=== PATIENT | female | born 1985 ===

== ENCOUNTER 2024-06-30 20:58 | Emergency (ER) | payer BC, MEDICAID, SELFPAY ==
--- NOTE | ~2024-06-30 | XR_ITS ---
HISTORY: look for needle tip; infxn from injection COMPARISON: None TECHNIQUE: 2 views of the left humerus were performed FINDINGS: No acute or subacute fracture. Joint spaces are preserved and alignment is maintained. Soft tissues are unremarkable without radiopaque foreign body or significant calcification. Age-appropriate mineralization. IMPRESSION: No radiopaque foreign body, as detailed above. Reviewed, dictated and finalized at location A.
[2024-06-30 21:01] VITALS: BP 117/50; PULSE 98; RESP 15; TEMP 36.2; O2SAT 100
--- OUTSIDE RECORDS SUMMARY | 2024-06-30 21:01 | XMS_ITS | Continuity of Care Document ---
Author Organization [facility] Address [address] [place] [address] Phone Care Team Providers Care Brush Clearing Laborer Name Role Phone Unavailable Unavailable Unavailable Medications Medication Instructions Dosage Effective Dates (start - stop) Status Comments Vicodin 5 mg-500 mg Tab take 1 tablet by oral route every 4 - 6 hours as needed for pain - Active Vicodin 5 mg-500 mg Tab take 1 tablet by oral route every 4 - 6 hours as needed for pain - Active Vicodin 5 mg-500 mg Tab take 1 tablet by oral route every 4 - 6 hours as needed for pain - Active Vicodin 5 mg-500 mg Tab take 1 tablet by oral route every 4 - 6 hours as needed for pain - Active Vicodin 5 mg-500 mg Tab take 1 tablet by oral route every 4 - 6 hours as needed for pain - Active Vicodin 5 mg-500 mg Tab take 1 tablet by oral route every 4 - 6 hours as needed for pain - No Longer Active Procedures Procedure Date Extraction erupted tooth or exposed root Surgical extr erupted tooth Extraction erupted tooth or exposed root Resin composite, 1 surf posterior Dentures maxill part resin Denture Intermediate Visit Study Models Znpgaqh-Grejepx-Pfliwcy Impressions Extraction erupted tooth or exposed root Extraction erupted tooth or exposed root Extraction erupted tooth or exposed root Extraction erupted tooth or exposed root Extraction erupted tooth or exposed root Extraction erupted tooth or exposed root Extraction erupted tooth or exposed root Extraction erupted tooth or exposed root Amalgam two surfaces Limit oral eval problem focused 011 Comprehensve oral evaluation Dental bitewings four films Dental prophylaxis adult Topical fluor w/o prophy adult 11 Oral hygiene instruction Advance Directives Directive Yes / No Effective Date File Name No Information Encounters Encounter Description Practice Location Reason(s) For Visit Diagnoses Date Provider Providers Copied on Encounter [facility] , [address], [place], [place], [address], tel:[phone] [facility] Dental examination No Information [facility] , [address], [place], [place], [address], tel:[phone] [facility] [place] Dental examination Basia Crews. [address], [place], [place], [address], . tel:[phone] [facility] , [address], [place], [place], [address], tel:[phone] [facility] Dental examination No Information [facility] , [address], [place], [place], [address], tel:[phone] [facility] Dental examination No Information [facility] , [address], [place], [place], [address], tel:[phone] [facility] [place] Dental examination No Information [facility] [employer] , [address], [place], [place], [address], tel:[phone] [facility] [place] No Information No Information [facility] [employer] , [address], [place], [place], [address], tel:[phone] [facility] [place] No Information No Information [facility] [employer] , [address], [place], [place], [address], tel:[phone] [facility] No Information No Information [facility] [employer] , [address], [place], [place], [address], tel:[phone] [facility] No Information No Information [facility] , [address], [place], [place], [address], tel:[phone] [facility] No Information No Information [facility] , [address], [place], [place], [address], tel:[phone] [facility] [place] No Information No Information [facility] , [address], [place], [place], [address], [place] tel:[phone] [facility] No Information No Information Family History Family Member Type Diagnosis Age At Onset No Information Payers Payer name Insurance type Covered constitution party ID Authoriza tion(s) No Information Social History Type Description Quantity Date Captured Comments Sex Female Smoking Status No Information Chief Complaint And Reason For Visit No Information Reason For Referral Reason For Referral No Information History Of Present Illness Encounter Date Complaint History Of Prese nt Illness No Information Functional Status Date Functional Assessmen t No Information Instructions Date Instruction Additional Infor mation No Information Assessments Type Assessment Date No Information Patient Care Teams Name Effective Dates (start - stop) Status Members No Information
--- OUTSIDE RECORDS SUMMARY | 2024-06-30 21:01 | XMS_ITS | Referral Summary ---
Author Organization [facility] Address [address] [place] [address] Care Team Providers Care Pouring Crane Operator Name Role Phone Unknown, Notinfile Primary Care Provider Unavail able Allergies No known active allergies Medications docusate sodium (COLACE) 100 mg capsuleIndicati ons:constipatio n Take 1 capsule (100 mg total) by mouth daily 30 [address] (PROTONIX) 40 mg EC tabletIndicatio ns:GI Bleed Take 1 tablet (40 mg total) by mouth 2 (two) times a day 60 tablet 9 Active lidocaine (LIDODERM) 5 % Apply 1 patch topically daily for 15 days Remove after 12 hours (need 12 hour patch free period). 15 patch 2 Active Active Problems Problem Noted Date Diagnosed Date Internal and external prolapsed hemorrhoids 08/2018 Gastric ulcer 09/25/2018 Microcytic anemia 09/24/2018 Assessment & Plan (09/25/2018 2:36 PM CDT): Given how anemic she is (3.7) with how well she looks, likely relatively chronic in nature. Vaginal bleeding most common cause of THEODORA in young women, however her history pretty clearly delineates a GI origin of her bleeding. It would be unusual for hemorrhoids to cause such a profound anemia. She does note a hx of rectal prolapse though there is none noted on rectal exam. DDx UGI bleed (gastritis, ulcer; unlikely esophageal varices though she does note a hx of heavy EtOH use), vs LGI bleed -s/p transfusion 3U prbcs 3.7-->7.9-->7.1 -EGD and colonoscopy performed today -EGD results: Suspicious for Diggs's esophagus, non-bleeding pre-pyloric gastric ulcer with erosive gastritis. -Colonoscopy results: Hemorrhoids with prolapse with congested, erythematous, friable and ulcerated mucosa in the distal rectum. -Biopsies taken -ON BID PO PPI -will start iron and colace at discharge Rectal prolapse 09/24/2018 Assessment & Plan (09/25/2018 2:25 PM CDT): Pt reported hx of rectal prolapse recently, though none noted on exam. -Hemorrhoids with prolapse found on colonoscopy -f/u with colorectal outpatient Polysubstance abuse 09/24/2018 Assessment & Plan (09/25/2018 2:25 PM CDT): Prior heavy EtOH use (2 pints 3-4x/week), no hx of withdrawals. Last drink in April. Snorts methamphetamines, last used ~1 week ago. Currently sexually active, not using contraception. -given duration since last drink, will not empirically place on CIWA; no withdrawal symptoms History of gastrointestinal hemorrhage 9 Overview (09/24/2018): Added automatically from request for surgery [id number] Social History Tobacco Use Types Packs/Day Years Used Date Smoking Tobacco: Every Day Cigarettes Alcohol Use Standard Drinks/Week Comments Not Currently 0 (1 standard drink = 0.6 oz pure alcohol) Previously drank 2 pints 3-4 x/week. Abstinent since 04/2018. Personal Safety Answer Date Recorded Getting School Help Needed Not on file 04/27 Comments No Sex and Gender Information Value Date Recorded Sex Assigned at Not on file Legal Sex Female 12:50 PM CDT Gender Identity Not on file Sexual Orientation Not on file Last Filed Vital Signs Vital Sign Reading Time Taken Comments Blood Pressure 114/64 01/01/2022 11:10 PM SEWER HEAD Pulse 77 01/01/2022 11:10 PM [facility] Temperature 36.7 C (98 F) 01/01/2022 3:45 PM SE[facility] Respiratory Rate 18 01/01/2022 11:10 PM SE[facility] Oxygen Saturation 100% 01/01/2022 11:10 PM SEWER HEAD Inhaled Oxygen Concentration - - Weight 63.5 kg (140 lb) 01/01/2022 3:45 PM SEWER HEAD Height 157.5 cm (5' 2 ) 01/01/2022 3:45 PM SEWER HEAD Body Mass Index 25.61 01/01/2022 3:45 PM SEWER HEAD Plan of Treatment Not on file Procedures Procedure Name Priority Date/Time Associated Diagnosis Comments HEPATITIS PANEL, ACUTE Routine 09/24/2018 9:15 PM CDT from Last 3 Months or Most Recently Relevant to Health Maintenance Results * Hepatitis panel, acute (09/24/2018 9:15 PM CDT) Hep A IgM Nonreactive Nonreactive [facility] Comment: Interpretive Data If test is reported as GRAYZONE, new sample should be drawn in two weeks for testing. Current interpretive data was last revised on 2016. Hep B core IgM Nonreactive Nonreactive [facility] Comment: Interpretive Data If test is reported as GRAYZONE, new sample should be drawn for testing. Current interpretive data was last revised on 2016. Hep C Ab Nonreactive Nonreactive [facility] Comment: Interpretive Data Positive results should be confirmed by a molecular method. If positive, a second separately collected sample should be submitted for Hepatitis C Virus (HCV) RNA Detection and Quantitation by Real-Time Reverse Phd Internship-PCR (RT-PCR). Current interpretive data was last revised on 2016. HepBsAg Nonreactive Nonreactive [facility] Blood specimen (specimen) 09/24/2018 9:15 PM CDT 09/24/2018 9:56 PM CDT us Jimmy Garcia MD LAB MICROBIOLOGY - GENE [facility] ORDERABLES Edited Result - Final [facility] Department [place] [address] from Last 3 Months or Most Recently Relevant to Health Maintenance Insurance [employer] BETTER [facility] [employer] [place] Advance Directives For more information, please contact: [phone] * Full Code (Latest Code Status on File) Date Activated Date Inactivated Comments 09/23/2018 11:38 PM 09/25/2018 9:12 PM Care Teams Pouring Crane Operator Relationship Specialty Start Date End Date Unknown, Notinfile PCP - General 09/25/18
--- OUTSIDE RECORDS SUMMARY | 2024-06-30 21:01 | XMS_ITS ---
Author Organization [facility] Address [address] [place] [address] Care Team Providers Care Technical Fellow Name Role Phone Santino Zambrano Primary Care Provider REASON FOR VISIT 2 Week F/U Social History Sex Assigned At : Social History Observation Description Sex Assigned At Female Encounters Encounter Location Date Provider Diagnosis [address] [place] [address] 06/11/2023 Santino Zambrano Plan Of Treatment No Information Progress Notes * Iban OLIVOOB: 984 (39 yo F)Acc No.[id number]:06/11/2023 UNLOCKED PROGRESS NOTE Progress Notes Patient: Nereida JIM Provider: Brooks Zambrano :1985 A ge:38 Y S ex:Female Date:06/11/2023 Address:[facility] Subjective: * Chief Complaints: * 1 . 2 Week F/U. * Medical History: Objective: * Vitals: Assessment: Plan: * Treatment: * * Electronic signature of Trevon Zambrano , [id number] on 06/30/2024 at 09:00 PM CDT Sign off status: Pending * Provider: Brooks Zambrano Date: 06/11/2023 Generated for Joselin ng/Falinag/eTransmitting on: 06/30/2024 09:00 PM CDT
--- OUTSIDE RECORDS SUMMARY | 2024-06-30 21:01 | XMS_ITS | Encounter Summary ---
Author Organization [facility] Address [address] [place] [address] Care Team Providers Care Director Correctional Agency Name Role Phone Unknown, Notinfile Primary Care Provider Unavail able Unknown, Notinfile Primary Care Provider Unavail able Encounter Details Date Type Department Care Team (Late st Contact Info) Description 09/23/[address] [address] Harriet Serra RN Social History Tobacco Use Types Packs/Day Years Used Date Smoking Tobacco: Every Day Alcohol Use Standard Drinks/Week Comments Not Currently 0 (1 standard drink = 0.6 oz pur e alcohol) Comments Unknown Sex and Gender Information Value Date Recorded Sex Assigned at Not on file Legal Sex Female 12:50 PM CDT Gender Identity Not on file Sexual Orientation Not on file documented as of this encounter Plan of Treatment Not on file documented as of this encounter Visit Diagnoses Not on filedocumented in this encounter Care Teams Director Correctional Agency Relationship Specialty Start Date End Date Unknown, Notinfile PCP - General 09/23/18 09/24/18 Unknown, Notinfile PCP - General 09/25/18 documented as of this encounter
--- OUTSIDE RECORDS SUMMARY | 2024-06-30 21:01 | XMS_ITS | Clinical Summary ---
Author Organization [facility] Address [address] [place] [address] Care Team Providers Care Machine Wiper Name Role Phone Unknown, Notinfile Primary Care [...] (09/24/2018): Added automatically from request for surgery [id number] Surgical History Surgery Date Site/Laterality Comments COLONOSCOPY 02/25/2018 - 02/24/2019 ESOPHAGOGASTRODUODENOSCOPY 02/25/2018 - 02/24/2019 Medical History Medical History Date Comments Anemia Substance abuse (HCC) Family History Medical History Relation Name Comments Anemia Mother Relation Name Status Comments Mother Social History Tobacco Use Types Packs/Day Years [...] on file Sexual Orientation Not on file Obstetrics History Last Filed Vital Signs Vital Sign Reading Time Taken Comments Blood Pressure 114/64 01/01/2022 11:10 PM PHYSIOLOGICAL CHEMIST Pulse 77 01/01/2022 11:10 PM PHYSIOLOGICAL CHEMIST Temperature 36.7 C (98 F) 01/01/2022 3:45 PM PHYSIOLOGICAL CHEMIST Respiratory Rate 18 01/01/2022 11:10 PM PHYSIOLOGICAL CHEMIST Oxygen Saturation 100% 01/01/2022 11:10 PM PHYSIOLOGICAL CHEMIST Inhaled Oxygen Concentration - - Weight 63.5 kg (140 lb) 01/01/2022 3:45 PM PHYSIOLOGICAL CHEMIST Height 157.5 cm (5' 2 ) 01/01/2022 3:45 PM PHYSIOLOGICAL CHEMIST Body Mass Index 25.61 01/01/2022 3:45 PM PHYSIOLOGICAL CHEMIST Plan of Treatment Health Maintenance Due Date Last Done Comments Breast Cancer Screening-Mammogram 1985 Cervical Cancer Screening 1985 Depression Screening 1985 Varicella Vaccines (1 of 2 - 13+ 2-dose series) 05/30/1996 DTaP/Tdap/Td Vaccine (5 - Tdap) 11/28/1996 11/27/1996, 08/21/1988, 06/25/1984, Additional history exists Regular Well Visit/Exam 18-64 05/30/2001 Pneumococcal vaccine <65 (1 of 2 - PCV) 05/30/2002 HPV Vaccines (2 - 3-dose SCD M series) 07/11/2018 06/13/2018 Influenza Vaccine (Season Ended) 2024 11/26/18 97 Hepatitis B Screening Completed 11/05/2000 , 04/02/2000, 03/05/2000 Hepatitis C Screening Completed 09/24/2018 Procedures Procedure Name Priority Date/Time Associated Diagnosis Comments HEPATITIS PANEL, ACUTE Routine 09/24/2018 9:15 PM CDT from Last 3 Months or Most Recently Relevant to Health Maintenance Results * Hepatitis panel, acute (09/24/2018 9:15 PM CDT) Hep A IgM Nonreactive Nonreactive [facility] Comment: Interpretive Data If test is reported as GRAYZONE, new sample should be drawn in two weeks for testing. Current interpretive data was last revised on 2016. Hep B core IgM Nonreactive Nonreactive [facility] Comment: Interpretive Data If test is reported as GRAYZONE, new sample should be drawn for testing. Current interpretive data was last revised on 2016. Hep C Ab Nonreactive Nonreactive [facility] Comment: Interpretive Data Positive results should be confirmed by a molecular method. If positive, a second separately collected sample should be submitted for Hepatitis C Virus (HCV) RNA Detection and Quantitation by Real-Time Reverse Beet Topper-PCR (RT-PCR). Current interpretive data was last revised on 2016. HepBsAg Nonreactive Nonreactive [facility] Blood specimen (specimen) 09/24/2018 9:15 PM CDT 09/24/2018 9:56 PM CDT us Jimmy Garcia MD LAB MICROBIOLOGY - GENE [facility] ORDERABLES Edited Result - Final [facility] Department [place] [address] from Last 3 Months or Most Recently Relevant to Health Maintenance Insurance [place] [address] [facility] Advance Directives For more information, please contact: [phone] * Full Code (Latest Code Status on File) Date Activated Date Inactivated Comments 09/23/2018 11:38 PM 09/25/2018 9:12 PM Care Teams Machine Wiper Relationship Specialty Start Date End Date Unknown, Notinfile PCP - General 09/25/18
--- OUTSIDE RECORDS SUMMARY | 2024-06-30 21:01 | XMS_ITS | Patient Health Record ---
Author Organization [facility] Address [address] [place] [address] Care Team Providers Care Magazine Keeper Name Role Phone Santino Zambrano Primary Care Provider [place] Day Unavailable [phone] Allergies Allergen (clinical drug ingredient) Drug/Non Drug Allergy documented on EMR Reaction Allergy Type Onset Date Status Wasp Venom Unknown Drug Allergy Active Reason For Referral Reason PERSISTENT PAIN AFTE R LEFT SHOULDER INJURY WITH UNREMARKABLE XRAY Diagnosis 1 Shoulder pain, left (M25.512) Referral Organization [facility] Referring Provider First Name Santino Referring Provider Last Name Kenya Referring Provider Speciality Internal M edicine Referred Provider Specialty Orthopedic S urgery General Notes VICKIE Amador, Sierra Rose 08/12/2023 07:57:44 AM >referral to [facility] Orthopedics and Sports Medicine. Letter to pt. Clinical Notes [facility] Orthopedics and Sports Medicine, [address] [place] [address], [address], [facility] [address], , Referral Priority Routine Medications Medication SIG (Take, Route, Fr equency, Duration) Notes Start Date End Date Status Naproxen 500 MG 1 tablet with food or milk as needed Orally every 12 hrs As needed PAIN 05/22/2023 Active GoodSense Nicotine 4 MG 1 lozenge as needed Mouth/Throat EVERY 2 HOURS As needed SMOKING CESSATION 05/22/2023 Acti ve Social History Tobacco Use: Social History Observation Description Date Details (start date - stop date) Current Smoker NA - NA Sex Assigned At : Social History Observation Description Sex Assigned At Female Tobacco Control (Standard) Question Answer Notes Tobacco use: Current smoker Problems Problem Type SNOMED Code ICD Code Onset Dates Problem Status W/U Status Risk Notes Problem Tobacco user (045835388) Nicotine dependence, unspecified, uncomplicated (F17.200) Active confirmed Problem Alcohol use disorder (1240645206) Alcohol use disorder (F10.99) Active confirmed Problem Methamphetamine abuse (477003218) Methamphetamine abuse (F15.10) Active confirmed Problem Adjustment disorder (08166557) 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) 05/22/19 24 Active confirmed Vital Signs Heart Rate 68 /min 10/23/2023 Respiratory Rate 16 /min 10/23/2023 Blood pressure diastolic 60 mm Hg 10/23/2023 Oximetry 99 % 10/23/2023 Height 62 in 10/23/2023 Blood pressure systolic 98 mm Hg 10/23/2023 Weight 144.60 lbs 10/23/2023 BMI 26.44 kg/m2 10/23/2023 Encounters Encounter Location Date Provider Diagnosis [address] [place] [address] 07/23/2023 Santino Zambrano Shoulder pain, left M25.[address] [place] [address] 10/23/2023 [place] Day General medical exam Z00.00 ; Overweight E66.3 ; Nutritional counseling Z71.3 and Nicotine dependence, unspecified, uncomplicated F17.200 Assessments Encounter Date Diagnosis (ICD Code) Assessment Notes Treatment Notes Treatment Clinical Notes Section Notes 07/23/2023 Shoulder pain, left (ICD-10 - M25.512) CONTINUE THERAPY AND PRN NAPROXEN 10/23/2023 Overweight (ICD-10 - E66.3) 10/23/2023 General medical exam (ICD-10 - Z00.00) Continue treatment as recommended by [facility] staff. Encouraged patient to obtain routine medical care with patient's own primary care provider or establish as a patient at [facility] if no current primary care provider. 10/23/2023 Nutritional counseling (ICD-10 - Z71.3) 10/23/2023 Nicotine dependence, unspecified, uncomplicated (ICD-10 - F17.200) 10/23/2023 Other Plan Of Treatment No Information Insurance Providers Payer Name Payer Address Payer Phone Subscriber Number Group Number Insured Name Patient Relationship to Insured Coverage Start Date Coverage End Date MEDICAID [address] [place] [phone] [id number] Nereida Walker Self - patient is the insured 4 Medical (General) History Medical History History ICD Code substance abuse Surgical History Surgery Date(Month/Year) PROLPASED RECTUM REPAIRED (RODRIGUEZ) 2019 Hospitalization History Reason Date(Month/Year) muscle strain 04/2023 thoracic strain 04/2023 CRU 09/2023
--- OUTSIDE RECORDS SUMMARY | 2024-06-30 21:01 | XMS_ITS | Clinical Summary ---
Author Organization [facility] Address [address] [place] [address] Care Team Providers Care Aircraft Engine Dismantler Name Role Phone Unavailable Primary Care Provider Unavailabl e Source Comments [facility],non-owned Affiliates and Associated Physician Practices is amultiple site organization consisting of ambulatory clinics and hospital sitesin [place], [place], [place] and [place]. This disclosure is being madepursuant to the Care Everywhere program and may not contain all information available regarding this patient. Last updated 17.[facility] Allergies Active Allergy Reactions Criticality Noted Date Comments other [Other] Rash Medium 03/03/2019 Blueberry flavored NJOY brand e-cigarette Medications * Be aware that medications may not be up to date on this document. Alwaysverify current medications with the patient. plus iron (NATATAB) 29-1 MG tablet Take 1 tablet by mouth once daily 90 tablet 11 9 Active FEROSUL 325 (65 Fe) MG tablet TK 1 T PO DAILY WITH BREAKFAST 0 9 Active pantoprazole EC (PROTONIX) 40 MG tablet TK 1 T PO BID 0 9 Active HYDROcodone-jes taminophen (NORCO) 10-325 MG tablet Take 1 tablet by mouth every 6 hours as needed for Pain 40 tablet 0 Active docusate sodium (COLACE) 100 MG capsule Take 1 capsule by mouth once daily Start taking colace daily on the 6th day post-op and take each day while on pain medications. 30 capsule 0 Active magnesium hydroxide (MILK OF MAGNESIA) 400 MG/5ML suspension Take 15 mL by mouth as needed Take 1 ounce tonight and every night for 5 nights post-op. Then take colace as directed. 355 mL 0 Active diazePAM (VALIUM) 2 MG tablet Take 1 tablet by mouth 3 times daily 21 tablet 0 Active Active Problems Patient Care Coordination No te Formatting of this note migh t be different from the original. Nopp/mfcc 05/2018 Problem Noted Date Diagnosed Date Grade II hemorrhoids 10/29/2018 Anemia 10/28/2018 Immunizations Immunization Administration Dates Next Due Human Papilloma Virus Ninevalent Vaccine 019 Family History Medical History Relation Name Comments Hypertension Maternal Grandmother Bipolar Disorder Mother Depression Mother Diabetes - Type 2 Mother Hypertension Mother Relation Name Status Comments Maternal Grandmother Mother Social History Tobacco Use Types Packs/Day Years Used Date Smoking Tobacco: Every Day Cigarettes 0.5 21.3 Started: 2003 Smokeless Tobacco: Never Tobacco Cessation:Ready to Q uit: No; Counseling Given: No Alcohol Use Standard Drinks/Week Comments Yes 0 (1 standard drink = 0.6 oz pure alcohol) 3x per week, liquour, drinks a pint per time, not interested in quitting Comments No Sex and Gender Information Value Date Recorded Sex Assigned at Not on file Legal Sex Female 5:34 AM SLEEPER CUTTER Gender Identity Not on file Sexual Orientation Not on file Last Filed Vital Signs Vital Sign Reading Time Taken Comments Blood Pressure 113/62 03/03/2019 4:20 PM SLEEPER CUTTER Pulse 66 03/03/2019 4:20 PM SLEEPER CUTTER Temperature 36.7 C (98 F) 03/03/2019 3:50 PM SLEEPER CUTTER Respiratory Rate 9 03/03/2019 4:20 PM SLEEPER CUTTER Oxygen Saturation 100% 03/03/2019 4:20 PM SLEEPER CUTTER Inhaled Oxygen Concentration - - Weight 59.4 kg (131 lb) 03/03/2019 1:39 PM SLEEPER CUTTER Height 157.5 cm (5' 2 ) 03/03/2019 1:39 PM SLEEPER CUTTER Body Mass Index 23.96 03/03/2019 1:39 PM SLEEPER CUTTER Plan of Treatment Health Maintenance Due Date Last Done Comments LIPID TESTING 1983 MAMMOGRAM 1983 DTAP/TDAP/TD VACCINES (1 - Tdap) 05/30/2002 HEPATITIS B VACCINE (1 of 3 - 19+ 3-dose series) 05/30/2002 HPV VACCINE (2 - 3-dose SCDM series) 07/11/2018 06/13/2018 COVID-19 VACCINE (1 - 2023-2 5 season) 2023 DEPRESSION SCREENING 02/26/2024 INFLUENZA VACCINE (Season Ended) 2024 ZOSTER VACCINE (1 of 2) 05/30/2033 HEPATITIS C SCREENING Completed 06/13/2018 HIV SCREENING Completed 06/13/2018 HIB VACCINE Aged Out No longer eligi ble based on patient's age to complete this topic MENINGOCOCCAL (Group B) VACC INE SHARED DECISION-MAKING Aged Out No longer eligibl e based on patient's age to complete this topic MENINGOCOCCAL GROUPS A/C/Y/W VACCINE Aged Out No longer eligible b ased on patient's age to complete this topic PNEUMOCOCCAL VACCINE Aged Out No long er eligible based on patient's age to complete this topic Procedures Procedure Name Priority Date/Time Associated Diagnosis Comments HEPATITIS C ANTIBODY Routine 06/13/2018 3:10 PM CDT Well woman exam HIV-1 HIV-2 ANTIBODY + HIV P24 AG PANEL Routine 06/13/2018 3:10 PM CDT Well woman exam from Last 3 Months or Most Recently Relevant to Health Maintenance Results * HIV-1 HIV-2 ANTIBODY + HIV P24 AG PANEL (06/13/2018 3:10 PM CDT) HIV1/2 Ab + P24 Ag Non Reactive Non Reactive 06/14/2018 12:08 AM CDT [facility] Blood BLOOD SPECIMEN / Unknown Venipuncture / Unknown 06/13/2018 3:10 PM CDT 06/13/2018 3:23 PM CDT Narrative [facility] - 06/14/2018 12:08 AM CDT No Laboratory evidence of HIV infection. us Jennifer Stauffer MD LAB - CHEMISTRY ORDERABLES Fi nal Result [facility] [place] [address] * HEPATITIS C ANTIBODY (06/13/2018 3:10 PM CDT) HCV Antibody Screen Non Reactive Non Reactive 06/13/2018 4:[address] [facility] HCV S/C Ratio <0.02 0.00 - 0.79 06/13/2018 4:[address] [facility] Comment: Zjxazx-cp-jljnrw ratio (S/CO) <0.80: Non Reactive Blood BLOOD SPECIMEN / Unknown Venipuncture / Unknown 06/13/2018 3:10 PM CDT 06/13/2018 3:[address] [facility] - 06/13/2018 4:37 PM CDT Non Reactive - Antibodies to Hepatitis C virus (HCV) were not detected, result does not exclude early acute HCV infection. Jennifer Stauffer MD LAB - CHEMISTRY ORDERABLES [facility] Result Performing Organization Address City/State/[facility] Co de Phone Number [facility] [address] [place] [address] from Last 3 Months or Most Recently Relevant to Health Maintenance Insurance MEDICAID [employer] [place]
--- OUTSIDE RECORDS SUMMARY | 2024-06-30 22:21 | XMS_ITS | Encounter Summary ---
Author Organization [facility] Healthcare Address [address] [place] [address] Care Team Providers Care Milling/Polishing Operator Name Role Phone Unknown, Notinfile Primary Care Provider Unavail able Unknown, Notinfile Primary Care Provider Unavail able Encounter Details Date Type Department Care Team (Late st Contact Info) Description 09/23/[address] [address] Harriet Serra RN Social History Tobacco Use [...] on filedocumented in this encounter Care Teams Milling/Polishing Operator Relationship Specialty Start Date End Date Unknown, Notinfile PCP - General 09/23/18 09/24/18 Unknown, Notinfile PCP - General 09/25/18 documented as of this encounter
--- OUTSIDE RECORDS SUMMARY | 2024-06-30 22:21 | XMS_ITS | Referral Summary ---
Author Organization [facility] Address [address] [place] [address] Care Team Providers Care Guest Service Agent Name Role Phone Unknown, Notinfile Primary Care [...] (09/24/2018): Added automatically from request for surgery [id number] Social History Tobacco Use Types Packs/Day Years [...] Comments Blood Pressure 114/64 01/01/2022 11:10 PM ADULT EDUCATOR Pulse 77 01/01/2022 11:10 PM ADULT EDUCATOR Temperature 36.7 C (98 F) 01/01/2022 3:45 PM ADULT EDUCATOR Respiratory Rate 18 01/01/2022 11:10 PM ADULT EDUCATOR Oxygen Saturation 100% 01/01/2022 11:10 PM ADULT EDUCATOR Inhaled Oxygen Concentration - - Weight 63.5 kg (140 lb) 01/01/2022 3:45 PM ADULT EDUCATOR Height 157.5 cm (5' 2 ) 01/01/2022 3:45 PM ADULT EDUCATOR Body Mass Index 25.61 01/01/2022 3:45 PM ADULT EDUCATOR Plan of Treatment Not on file Procedures Procedure Name Priority Date/Time Associated Diagnosis Comments HEPATITIS PANEL, ACUTE Routine 09/24/2018 9:15 PM CDT from Last 3 Months or Most Recently Relevant to Health Maintenance Results * Hepatitis panel, acute (09/24/2018 9:15 PM CDT) Hep A IgM Nonreactive Nonreactive [facility] Comment: Interpretive Data If test is reported as GRAYZONE, new sample should be drawn in two weeks for testing. Current interpretive data was last revised on 2016. Hep B core IgM Nonreactive Nonreactive [facility] Comment: Interpretive Data If test is reported as GRAYZONE, new sample should be drawn for testing. Current interpretive data was last revised on 2016. Hep C Ab Nonreactive Nonreactive [facility] Comment: Interpretive Data Positive results should be confirmed by a molecular method. If positive, a second separately collected sample should be submitted for Hepatitis C Virus (HCV) RNA Detection and Quantitation by Real-Time Reverse Seal Mixing Operator-PCR (RT-PCR). Current interpretive data was last revised on 2016. HepBsAg Nonreactive Nonreactive [facility] Blood specimen (specimen) 09/24/2018 9:15 PM CDT 09/24/2018 9:56 PM CDT us Jimmy Garcia MD LAB MICROBIOLOGY - [facility] ORDERABLES Edited Result - Final [facility] [address] [facility] Department [place] [address] from Last 3 Months or Most Recently Relevant to Health Maintenance Insurance AETNA BETTER [facility] AET[employer] [place]TER [place] Advance Directives For more information, please contact: [phone] * Full Code (Latest Code Status on File) Date Activated Date Inactivated Comments 09/23/2018 11:38 PM 09/25/2018 9:12 PM Care Teams Guest Service Agent Relationship Specialty Start Date End Date Unknown, Notinfile PCP - General 09/25/18
--- OUTSIDE RECORDS SUMMARY | 2024-06-30 22:21 | XMS_ITS | Continuity of Care Document ---
Author Organization [facility] Address [address] [place] [address] Phone Care Team Providers Care Baker Head Name Role Phone Unavailable Unavailable Unavailable Medications [...] part resin Denture Intermediate Visit Study Models Iyynnbp-Lysdumk-Ieakjgo Impressions Extraction erupted tooth or exposed root [...] Diagnoses Date Provider Providers Copied on Encounter [facility] , [address], [place], [place], [id number], tel:[phone] Dental Jimy Dental examination No Information [facility] , [address], [place], [place], [address], tel:[phone] Dental [place] Dental examination Basia Crews. [address], [place], [place], [address], . tel:[phone] [facility] , [address], [place], [place], [address], tel:[phone] Dental Jimy Dental examination No Information [facility] , [address], [place], [place], [address], tel:[phone] Dental Jimy Dental examination No Information [facility] , [address], [place], [place], [address], tel:[phone] Dental [facility] Dental examination No Information Interview [facility] , [address], [place], [place], [address], tel:[phone] Dental [facility] No Information No Information Interview [facility] , [address], [place], [place], [address], tel:[phone] Dental [facility] No Information No Information Interview [facility] , [address], [place], [place], [address], tel:[phone] Dental Jimy No Information No Information Interview [facility] , [address], [place], [place], [address], tel:[phone] Dental Jimy No Information No Information [facility] , [address], [place], [place], [address], tel:[phone] Dental Jimy No Information No Information [facility] , [address], [place], [place], [address], tel:[phone] Dental [facility] No Information No Information [facility] , [address], [place], [place], [address], [place] tel:[phone] Dental Jimy No Information No Information Family History Family Member Type Diagnosis Age At Onset No Information Payers Payer name Insurance type Covered republican ID Authoriza tion(s) No Information Social History [...]
--- OUTSIDE RECORDS SUMMARY | 2024-06-30 22:21 | XMS_ITS | Clinical Summary ---
Author Organization [facility] Address [address] [place] [address] Care Team Providers Care Insert Operator Name Role Phone Unknown, Notinfile Primary [...] (09/24/2018): Added automatically from request for surgery [id number] Surgical History Surgery Date Site/Laterality Comments COLONOSCOPY [...] Comments Blood Pressure 114/64 01/01/2022 11:10 PM FAMILY DINNER SERVICE SPECIALIST Pulse 77 01/01/2022 11:10 PM FAMILY DINNER SERVICE SPECIALIST Temperature 36.7 C (98 F) 01/01/2022 3:45 PM FAMILY DINNER SERVICE SPECIALIST Respiratory Rate 18 01/01/2022 11:10 PM FAMILY DINNER SERVICE SPECIALIST Oxygen Saturation 100% 01/01/2022 11:10 PM FAMILY DINNER SERVICE SPECIALIST Inhaled Oxygen Concentration - - Weight 63.5 kg (140 lb) 01/01/2022 3:45 PM FAMILY DINNER SERVICE SPECIALIST Height 157.5 cm (5' 2 ) 01/01/2022 3:45 PM FAMILY DINNER SERVICE SPECIALIST Body Mass Index 25.61 01/01/2022 3:45 PM FAMILY DINNER SERVICE SPECIALIST Plan of Treatment Health Maintenance Due Date [...] on 2016. Hep C Ab Nonreactive Nonreactive [facility] Comment: Interpretive Data Positive results should be confirmed by a molecular method. If positive, a second separately collected sample should be submitted for Hepatitis C Virus (HCV) RNA Detection and Quantitation by Real-Time Reverse Gold Frame Assembler-PCR (RT-PCR). Current interpretive data was last revised on 2016. HepBsAg Nonreactive Nonreactive [facility] Blood specimen (specimen) 09/24/2018 9:15 PM CDT 09/24/2018 9:56 PM CDT us Jimmy Garcia MD LAB MICROBIOLOGY - [facility]ENE [facility] ORDERABLES Edited Result - Final [facility] [address] [facility] Department [place] [address] from Last 3 Months or Most Recently Relevant to Health Maintenance [place] [address] [facility] Advance Directives For more information, please contact: [phone] * Full Code (Latest Code Status on File) Date Activated Date Inactivated Comments 09/23/2018 11:38 PM 09/25/2018 9:12 PM Care Teams Insert Operator Relationship Specialty Start Date End Date Unknown, Notinfile PCP - General 09/25/18
--- OUTSIDE RECORDS SUMMARY | 2024-06-30 22:21 | XMS_ITS | Clinical Summary ---
Author Organization [facility] Address [address] [place] [address] Care Team Providers Care Exercise Physiology Professor Name Role Phone Unavailable Primary Care Provider Unavailabl e Source Comments [facility],non-owned Affiliates and Associated Physician Practices is amultiple site organization consisting of ambulatory clinics and hospital sitesin [place], [place], [place] and [place]. This disclosure is being madepursuant to the Care Everywhere program and may not contain all information available regarding this patient. Last updated 17.[facility] Allergies Active Allergy Reactions Criticality Noted Date [...] on file Legal Sex Female 5:34 AM WOVEN LABEL DESIGNER Gender Identity Not on file Sexual Orientation Not on file Last Filed Vital Signs Vital Sign Reading Time Taken Comments Blood Pressure 113/62 03/03/2019 4:20 PM WOVEN LABEL DESIGNER Pulse 66 03/03/2019 4:20 PM WOVEN LABEL DESIGNER Temperature 36.7 C (98 F) 03/03/2019 3:50 PM WOVEN LABEL DESIGNER Respiratory Rate 9 03/03/2019 4:20 PM WOVEN LABEL DESIGNER Oxygen Saturation 100% 03/03/2019 4:20 PM WOVEN LABEL DESIGNER Inhaled Oxygen Concentration - - Weight 59.4 kg (131 lb) 03/03/2019 1:39 PM WOVEN LABEL DESIGNER Height 157.5 cm (5' 2 ) 03/03/2019 1:39 PM WOVEN LABEL DESIGNER Body Mass Index 23.96 03/03/2019 1:39 PM WOVEN LABEL DESIGNER Plan of Treatment Health Maintenance Due Date [...] Reactive Non Reactive 06/14/2018 12:08 AM CDT [facility] Blood BLOOD SPECIMEN / Unknown Venipuncture / Unknown 06/13/2018 3:10 PM CDT 06/13/2018 3:23 PM CDT Narrative [facility] - 06/14/2018 12:08 AM CDT No Laboratory evidence of HIV infection. us Jennifer Stauffer MD LAB - CHEMISTRY ORDERABLES Fi nal Result [facility] [place] [address] * HEPATITIS C ANTIBODY (06/13/2018 3:10 PM CDT) HCV Antibody Screen Non Reactive Non Reactive 06/13/2018 4:37 PM CDT [facility] HCV S/C Ratio <0.02 0.00 - 0.79 06/13/2018 4:37 PM CDT [facility] Comment: Gucqai-nm-somlic ratio (S/CO) <0.80: Non Reactive Blood BLOOD SPECIMEN / Unknown Venipuncture / Unknown 06/13/2018 3:10 PM CDT 06/13/2018 3:23 PM CDT Narrative [facility] - 06/13/2018 4:37 PM CDT Non Reactive - Antibodies to Hepatitis C virus (HCV) were not detected, result does not exclude early acute HCV infection. Jennifer Stauffer MD LAB - CHEMISTRY ORDERABLES [facility] Result Performing Organization Address City/State/[facility] Co de Phone Number [facility] [address] [place] [address] from Last 3 Months or Most Recently Relevant to Health Maintenance Insurance MEDICAID AETNA [employer] [place]
[2024-06-30] MEDS: DOXYCYCLINE HYCLATE 100 MG TABLET PO (22:41)
--- NOTE | 2024-07-01 02:15 | ED_ITS ---
HPI - Skin/Abscess/Foreign Bdy General Chief complaint: Skin/Abscess/Foreign Body Stated complaint: Redness and swelling abscess to left upper arm Time Seen by Provider: 06/30/24 21:45 History of Present Illness HPI narrative: Patient injected meth into her L arm about 1-2 wks ago and swelling has gone down except for an area in her elbow. NO systemic sx; no f/c, cp, n/v. Related Data Allergies Allergy/AdvReac Type Severity Reaction Status Date / Time No Known Allergies Allergy Unverified 06/30/24 20:59 Review of Systems Review of Systems: All systems reviewed & are unremarkable except as noted in HPI and below Exam Narrative: EXAMINATION OF ORGAN SYSTEMS/BODY AREAS: Constitutional: Vital signs per nursing GENERAL:[No acute distress, non-toxic appearing.] HEAD: Normal with no signs of head trauma. EYES: EOMI, conjunctiva normal ENT: Hearing grossly intact LUNGS: Nonlabored breathing. HEART: [Regular rate and rhythm] ABD: [Soft], [nontender to palpation] EXT: Normal range of motion SKIN: Large 2.5cm x 2.cm area indurated/fluctuant to L inner elbow NEURO: [Alert and oriented x 3. No gross focal sensory or strength deficits.] PSYCH: Normal affect Course Vital Signs Vital signs: Vital Signs Temperature 97.2 F L 06/30/24 21:01 Pulse Rate 98 06/30/24 21:01 Respiratory Rate 15 06/30/24 21:01 Blood Pressure 117/50 L 06/30/24 21:01 Pulse Oximetry 100 06/30/24 21:01 Oxygen Delivery Room Air 06/30/24 21:01 Temperature 97.2 F L 06/30/24 21:01 Pulse Rate 98 06/30/24 21:01 Respiratory Rate 15 06/30/24 21:01 Blood Pressure 117/50 L 06/30/24 21:01 Pulse Oximetry 100 06/30/24 21:01 Oxygen Delivery Room Air 06/30/24 21:01 Procedures Abscess I/D upper extremity: Date of Incision: 07/01/24 Time of Incision: 22:00 Side (if applicable): left Local Anesthetic: lidocaine 1% Amount of anesthesia used (mL): 2 Technique: incised with #11 blade and probed loculations Amount of fluid expressed (mL): 5 Irrigation: Yes Packing used?: none I&D Results: Pus and Blood Abcess I&D Additional Comments: Ultrasound at bedside 1st performed via myself, I was able to starting that there was no vascular structure involved and that there were some fluid that was amenable to drainage. MDM - Skin/Abscess/Foreign Bdy MDM Narrative Medical decision making narrative: MEDICAL DECISION MAKING AND COURSE IN THE ED WITH INTERPRETATION/REVIEW OF DIAGNOSTIC STUDIES: Electronic medical record was reviewed. Patient presented to the ED with complaint of painful skin rash. Vitals [were within acceptable limits]. Physical exam revealed area of tenderness and induration consistent with abscess, [with] fluctuance that may benefit from drainage. Incision and drainage was performed here, verbal consent obtained and risks/benefits explained. Skin was cleaned and [1% lidocaine] solution was injected to make a wheal for local anesthesia. A scalpel was used to make a [5 mm] incision and [5 cc] of purulent discharge was expressed from the incision; probed with forceps and hemostats to break loculations. There was [minimal] bleeding, patient tolerated procedure [well]. Wound was left open to allow for further drainage. [Patient was given doxycycline here and a course to continue at home.] The patient is discharged home in stable condition. I have asked the patient to return to the emergency department for worsening pain, worsening and increasing size of skin infection, fevers/chills. The patient is instructed to follow up with [PCP] in [2] days. Patient verbalized understanding. Also counseled to stop using illicit drugs Discharge Plan Discharge Clinical Impression: Abscess Patient Disposition: Home Condition: Stable Instructions: Antibiotic Form, Abscess (ED) Additional Instructions: Please not use IV drugs or illicit drugs in general. If you start noticing any fevers, chills, shortness of breath or chest pain, or anything else concerning, or if you are not feeling better in the next few days, come back to the emergency room. Please follow-up with your doctor in the next 3 days. Patient Language: Croatian Prescriptions: New doxycycline hyclate 100 mg capsule 100 mg PO Q12H 7 Days Qty: 14 0RF Follow-up/Referrals: UNKNOWN,DOCTOR [Primary Care Provider] -
== END 2024-06-30 23:06 | disposition home or self-care (01) ==
PROVIDERS: Emergency Provider Emergency Medicine
DX: L02.414 Cutaneous abscess of left upper limb (principal)
CPT/HCPCS: 10060; 73060; 87070; 87075; 87205; 99283; A9270